=== PATIENT | female | born 1985 | race Caucasian/White ===

== ENCOUNTER 2019-07-18 05:07 | Emergency (ER) | payer SELFPAY ==
[~2019-07-18] VITALS: Ht 160 cm; Wt 63.5 kg
[~2019-07-18 05:07] MED LIST: ADDERALL20 MG PO; BACTRIM DS 8001 TA1 PO; CLARITIN-D 12 H1 TAB PO; DOXYCYCLINE MO100 MG PO; K-Dur 20MEQ20 MEQ PO; MEDROL DOSEPAK4 MG PO; MOTRIN800 MG PO; PREDNISONE20 M1 PO; PROAIR HFA0.09 MG/AC IH; PYRIDIUM200 MG PO; TORADOL10 MG PO; TRAMADOL HCL50 MG PO; ULTRAM50 MG PO; VALIUM5 MG PO; VIBRAMYCIN100 MG PO; ZITHROMAX250 MG PO; ZOLOFT100 MG PO; ZYRTEC10 MG PO
== END 2019-07-18 06:43 | disposition home or self-care (01) ==
LOC: ED 05:07
DX: S61.012A Laceration without foreign body of left thumb without damage to nail, initial encounter (principal); F17.200 Nicotine dependence, unspecified, uncomplicated; Z88.0 Allergy status to penicillin; Z88.6 Allergy status to analgesic agent; W26.0XXA Contact with knife, initial encounter; Y93.G9 Activity, other involving cooking and grilling; Y92.89 Other specified places as the place of occurrence of the external cause; Y99.8 Other external cause status